=== PATIENT | male | born 1970 | race Caucasian/White ===

== ENCOUNTER 2019-05-05 18:07 | Inpatient (IN) ==
--- NOTE | 2019-05-05 19:53 | RAD ---
HISTORYUMBILICAL ABD PAIN ABDOMEN PAIN, FAMILY STATES "PT HAD HERNIA RUPTURE A WHILE BACK."PAIN ALL DAY LONG, BURNING IN ABDOMEN. 01/23STUDYKUBCOMPARISONNoneFINDINGSEvaluation of the abdomen demonstrates a normal bowel gas pattern. No pathological soft tissue mass or calcification can be observed. The bony structures are grossly intact. Cholecystectomy clips.IMPRESSIONNo evidence for acute abdominal pathology identified.Electro nically signed by: ALEKSEY HOOKER (May 05, 2019 19:51:30)
[2019-05-05 19:54] LABS: BASOPHILS # (AUTO) 0.1 X10^3/uL (0.0-0.1); EOSINOPHILS # (AUTO) 0.1 x10^3/uL (0.0-0.2); EOSINOPHILS % (AUTO) 1.6 % (0.9-2.9); HEMATOCRIT 54.1 % (42.0-54.0); HEMOGLOBIN 18.6 g/dL (13.5-18.0); LYMPHOCYTES # (AUTO) 1.1 X10^3/uL (1.3-2.9); LYMPHOCYTES % (AUTO) 17.6 % (21.0-51.0); MEAN CORPUSCULAR HEMOGLOBIN 32.1 pg (27.0-34.0); MEAN CORPUSCULAR HGB CONC 34.4 g/dL (33.0-35.0); MEAN CORPUSCULAR VOLUME 93.3 fL (80.0-100.0); MEAN PLATELET VOLUME 8.1 fL (7.4-11.0); MONOCYTES # (AUTO) 0.4 x10^3/uL (0.3-0.8); MONOCYTES % (AUTO) 6.2 % (0.0-13.0); NEUTROPHILS # (AUTO) 4.5 x10^3/uL (2.2-4.8); NEUTROPHILS % (AUTO) 73.6 % (42.0-75.0); PLATELET COUNT 198 X10^3/uL (150.0-450.0); RED BLOOD COUNT 5.79 X10^6/uL (4.7-6.0); RED CELL DISTRIBUTION WIDTH 15.2 % (11.6-16.5); WHITE BLOOD COUNT 6.1 X10^3/uL (3.6-10.0)
[2019-05-05 20:02] LABS: ALANINE AMINOTRANSFERASE 25 Units/L (12-78); ALBUMIN 3.7 g/dL (3.4-5.0); ALKALINE PHOSPHATASE 160 Units/L (46-116); ASPARTATE AMINO TRANSFERASE 20 Units/L (15-37); BLOOD UREA NITROGEN 8 mg/dL (7-18); CALCIUM 8.6 mg/dL (8.5-10.1); CARBON DIOXIDE 29.3 mmol/L (21-32); CHLORIDE 101 mmol/L (98-107); CREATININE 0.92 mg/dL (0.70-1.30); SODIUM 140 mmol/L (136-145); TOTAL PROTEIN 7.2 g/dL (6.4-8.2); eGFR NON BLACK RACES > 60 (>60)
[2019-05-05] MEDS ORDERED: PEPCID 20 MG IV PREMIX* 20 MG/50 ML BAG IV ONE ×2 (20:44→21:03)
--- NOTE | 2019-05-05 20:45 | DR.ABDMALE ---
HPI Time seen Time Seen by Provider: 05/05/19 20:42 PCP Primary Care Physician: MARK Complaint Chief Complaint:: ABDOMEN PAIN, FAMILY STATES "PT HAD HERNIA RUPTURE A WHILE BACK."PAIN ALL DAY LONG, BURNING IN ABDOMEN. 01/23 Self Treatment fo Chief Complaint: PT STATES," I BEEN HURTING FOR YEARS." Mode of arrival Mode of Arrival: Wheelchair Timing Onset of Chief Complaint: 05/05/19 PMH PMH Past Medical History: Yes Past Medical History Comment: BACK PROBLEMS Past Surgical History: Yes Surgical History: Other Past Surgical History Comment: HERNIA REPAIR Family History History of Family Medical Conditions: Yes Family Medical History: Cancer Social History Type of Tobacco Use: Cigarettes Does any household member use tobacco: No Alcohol Use: DAILY Do you use any recreational Drugs:: No Lives With: Alone Lives Where: Home infectious screening In the last 2 months have you had wt loss of >10#?: NO Have you had fever, night sweats or hemotysis?: No Have you traveled outside the country in the last 6 months?: No Isolation: Standard PE Vital Signs Vital Signs: Temp Pulse Pulse Resp BP BP Pulse Ox 05/06/19 01:12 72 20 120/77 96 05/05/19 21:11 18 05/05/19 18:13 97.2 F L 98 H 20 139/86 96 ROR Labs Reviewed Result Diagrams: 05/05/19 19:40 05/05/19 19:40 Laboratory: WBC 6.1 X10^3/uL (3.6-10.0) 05/05/19 19:40 RBC 5.79 X10^6/uL (4.7-6.0) 05/05/19 19:40 Hgb 18.6 g/dL (13.5-18.0) H 05/05/19 19:40 Hct 54.1 % (42.0-54.0) H 05/05/19 19:40 MCV 93.3 fL (80.0-100.0) 05/05/19 19:40 MCH 32.1 pg (27.0-34.0) 05/05/19 19:40 MCHC 34.4 g/dL (33.0-35.0) 05/05/19 19:40 RDW 15.2 % (11.6-16.5) 05/05/19 19:40 Plt Count 198 X10^3/uL (150.0-450.0) 05/05/19 19:40 MPV 8.1 fL (7.4-11.0) 05/05/19 19:40 Neut % (Auto) 73.6 % (42.0-75.0) 05/05/19 19:40 Lymph % (Auto) 17.6 % (21.0-51.0) L 05/05/19 19:40 Logan % (Auto) 6.2 % (0.0-13.0) 05/05/19 19:40 Eos % (Auto) 1.6 % (0.9-2.9) 05/05/19 19:40 Baso % (Auto) 1.0 % (0.2-1.0) 05/05/19 19:40 Neut # (Auto) 4.5 x10^3/uL (2.2-4.8) 05/05/19 19:40 Lymph # (Auto) 1.1 X10^3/uL (1.3-2.9) L 05/05/19 19:40 Logan # (Auto) 0.4 x10^3/uL (0.3-0.8) 05/05/19 19:40 Eos # (Auto) 0.1 x10^3/uL (0.0-0.2) 05/05/19 19:40 Baso # (Auto) 0.1 X10^3/uL (0.0-0.1) 05/05/19 19:40 Absolute Nucleated RBC 0.4 /100WBC 05/05/19 19:40 Sodium 140 mmol/L (136-145) 05/05/19 19:40 Corrected Sodium TNP 05/05/19 19:40 Potassium 3.8 mmol/L (3.5-5.1) 05/05/19 19:40 Chloride 101 mmol/L (98-107) 05/05/19 19:40 Carbon Dioxide 29.3 mmol/L (21-32) 05/05/19 19:40 BUN 8 mg/dL (7-18) 05/05/19 19:40 Creatinine 0.92 mg/dL (0.70-1.30) 05/05/19 19:40 Est GFR (MDRD) Af Amer > 60 (>60) 05/05/19 19:40 Est GFR (MDRD) Non-Af > 60 (>60) 05/05/19 19:40 Glucose 100 mg/dL (65-99) H 05/05/19 19:40 Calcium 8.6 mg/dL (8.5-10.1) 05/05/19 19:40 Corrected Calcium TNP 05/05/19 19:40 Total Bilirubin 0.70 mg/dL (0.2-1.0) 05/05/19 19:40 AST 20 Units/L (15-37) 05/05/19 19:40 ALT 25 Units/L (12-78) 05/05/19 19:40 Alkaline Phosphatase 160 Units/L (46-116) H 05/05/19 19:40 Total Protein 7.2 g/dL (6.4-8.2) 05/05/19 19:40 Albumin 3.7 g/dL (3.4-5.0) 05/05/19 19:40 Globulin 3.5 g/dL (2.5-4.5) 05/05/19 19:40 Albumin/Globulin Ratio 1.1 Ratio (1.1-2.1) 05/05/19 19:40 Total PSA 1.61 ng/mL (0.13-4.0) 05/05/19 19:40 Specimen Type Clean catch urine 05/05/19 20:36 Urine Color Yellow (YELLOW) 05/05/19:36 Urine Appearance Clear (CLEAR) 05/05/19:36 Urine pH 8.0 (5.0 - 8.0) 05/05/19:36 Ur Specific [place] 1.015 (1.000-1.030) 05/05/19 20:36 Urine Protein Negative (NEGATIVE) 05/05/19 20:36 Urine Glucose (UA) Negative (NEGATIVE) 05/05/19: Urine Ketones Negative (NEGATIVE) 05/05/19: Urine Occult Blood Negative (NEGATIVE) 05/05/19: Urine Nitrite Negative (NEGATIVE) 05/05/19:36 Urine Bilirubin Negative (NEGATIVE) 05/05/19: Urine Urobilinogen Normal (NORMAL) 05/05/19: Ur Leukocyte Esterase Negative (NEGATIVE) 05/05/19 20:36 Opioid Opioid Risk Tool Age (Marc box if 16-45): No History of Preadolescent Sexual Abuse: No Total: 0 Total Score Risk Category: Low Risk Copyright: John INIGUEZ predicting aberrant behaviors Diagnosis Discharge Problem: Abdominal pain, Ventral hernia Instructions Forms: Patient Portal Excuse From Work
[2019-05-05 20:46] LABS: BILIRUBIN,URINE NEGATIVE (NEGATIVE); BLOOD/HEMOGLOBIN,URINE NEGATIVE (NEGATIVE); GLUCOSE, URINE NEGATIVE (NEGATIVE); KETONES,URINE NEGATIVE (NEGATIVE); LEUKOCYTE ESTERASE ,URINE NEGATIVE (NEGATIVE); NITRITES,URINE NEGATIVE (NEGATIVE); PROTEIN,URINE NEGATIVE (NEGATIVE); UROBILINOGEN,URINE NORMAL (NORMAL)
[2019-05-05 20:51] LABS: APPEARANCE,URINE CLEAR (CLEAR); COLOR,URINE YELLOW (YELLOW)
[2019-05-05] MEDS ORDERED: TORADOL 30 MG VIAL IVP ONE (21:01)
[2019-05-05] MEDS ORDERED: TORADOL 30 MG VIAL ONE (21:03)
[2019-05-05] MEDS ORDERED: NS 250 ML IV 250 ML IV ONE (21:03)
--- NOTE | 2019-05-06 00:28 | CT ---
CT abdomen and pelvis with contrastIndication: Abdominal pain. History of herniaCOMPARISONNo recent similar CTTECHNIQUEHelical images through the abdomen and pelvis after IV and oral contrast. Coronal and sagittal reformats providedFINDINGSLimited images through the lower chest demonstrates calcified left lower lung granuloma. Review of bone windows shows hemangioma at T10, without other acute osseous abnormality. L3 hemangioma also noted. Mild SI joint DJD notedAbdomen: The gallbladder is absent. The liver, spleen and adrenal glands are normal.. Hyperenhancing area near the tail of the pancreas is possibly a splenule on axial image 23, but pancreas tail lesion is not entirely excluded. The kidneys are normal. Few aortic vascular calcifications and iliac vascular calcifications are noted. Few noninflamed colonic diverticular noted. There is no acute colonic abnormality. The appendix is not convincingly demonstrated without pericecal inflammation. There is large ventral hernia, containing loops of mid abdominal small bowel. The bowel enters the left aspect of the hernia on axial image 51, and exits the hernia sac on axial image 48. The hernia sac is multi septate, with other loops of bowel entering into the right hernia sac, with more acute angulation on axial image 63. The loops within the hernia sac are minimally dilated, with mild adjacent mesenteric stranding. No high-grade obstruction seen.Pelvis: Urinary bladder and rectum are normal. Prostate gland is normal to slightly enlarged in sizeIMPRESSION1. Large ventral hernia, with multi septate hernia sac, with small-bowel entering and exiting at multiple levels, with mild stranding in the mesentery. While there is no high-grade obstruction, the bowel within the hernia sac is mildly dilated, and given the stranding, incarceration or strangulation may be developing. Surgical evaluation is recommended.2. Prominent prostate gland. Correlate with PSA3. No other acute abnormality to explain the patient's pain.Electronically signed by: HADLEY SALAZAR (May 06, 2019 00:27:26)
[2019-05-06] MEDS ORDERED: LEVAQUIN PREMIX IV 500 MG 500 MG/100 ML BAG IV ONE ×2 (01:16→01:31)
[2019-05-06] MEDS ORDERED: NS 1000 ML 1,000 ML ONE (01:16)
[2019-05-06] MEDS: NS 1000 ML 1,000 ML IV SCH ×2 (01:31→09:11)
[2019-05-06] MEDS ORDERED: MORPHINE SULFATE INJ 2 MG INJ IVP PRN (03:01)
[2019-05-06] MEDS ORDERED: ZOFRAN INJ 4 MG VIAL IVP PRN (03:01)
[2019-05-06 03:28] VITALS: BMI 29.1
[2019-05-06 06:32] LABS: BASOPHILS # (AUTO) 0.1 X10^3/uL (0.0-0.1); BASOPHILS % (AUTO) 1.2 % (0.2-1.0); EOSINOPHILS # (AUTO) 0.2 x10^3/uL (0.0-0.2); EOSINOPHILS % (AUTO) 4.6 % (0.9-2.9); HEMATOCRIT 50.6 % (42.0-54.0); HEMOGLOBIN 17.5 g/dL (13.5-18.0); LYMPHOCYTES # (AUTO) 1.3 X10^3/uL (1.3-2.9); LYMPHOCYTES % (AUTO) 28.6 % (21.0-51.0); MEAN CORPUSCULAR HGB CONC 34.5 g/dL (33.0-35.0); MEAN CORPUSCULAR VOLUME 92.8 fL (80.0-100.0); MEAN PLATELET VOLUME 8.1 fL (7.4-11.0); MONOCYTES # (AUTO) 0.5 x10^3/uL (0.3-0.8); MONOCYTES % (AUTO) 10.9 % (0.0-13.0); NEUTROPHILS # (AUTO) 2.6 x10^3/uL (2.2-4.8); NEUTROPHILS % (AUTO) 54.7 % (42.0-75.0); PLATELET COUNT 196 X10^3/uL (150.0-450.0); RED BLOOD COUNT 5.45 X10^6/uL (4.7-6.0); RED CELL DISTRIBUTION WIDTH 15.6 % (11.6-16.5); WHITE BLOOD COUNT 4.7 X10^3/uL (3.6-10.0)
[2019-05-06 06:44] LABS: ALANINE AMINOTRANSFERASE 23 Units/L (12-78); ALBUMIN 3.2 g/dL (3.4-5.0); ALKALINE PHOSPHATASE 146 Units/L (46-116); AMYLASE 25 Units/L (25-115); ASPARTATE AMINO TRANSFERASE 24 Units/L (15-37); BLOOD UREA NITROGEN 9 mg/dL (7-18); CALCIUM 8.1 mg/dL (8.5-10.1); CARBON DIOXIDE 31.4 mmol/L (21-32); CHLORIDE 102 mmol/L (98-107); COR CA(FOR HYPOALB) 8.7 mg/dL (8.5-10.1); CREATININE 0.93 mg/dL (0.70-1.30); SODIUM 139 mmol/L (136-145); TOTAL PROTEIN 6.4 g/dL (6.4-8.2); eGFR NON BLACK RACES > 60 (>60)
[2019-05-06] MEDS ORDERED: PEPCID 20 MG IV PREMIX* 20 MG/50 ML BAG IV SCH (09:00)
[2019-05-06 12:11] VITALS: BP 118/80
[2019-05-06] MEDS ORDERED: LEVAQUIN PREMIX IV 500 MG 500 MG/100 ML BAG IV SCH (21:00)
== END 2019-05-06 15:10 | disposition home or self-care (01) | DRG 395 ==
LOC: ER 18:12 → MED/SURG 05-06 02:17
PROVIDERS: ADMIT Internal Medicine; ATTEND Internal Medicine
DX: M51.36 Other intervertebral disc degeneration, lumbar region; R10.9 Unspecified abdominal pain; N40.0 Benign prostatic hyperplasia without lower urinary tract symptoms; K43.2 Incisional hernia without obstruction or gangrene
CPT/HCPCS: 36415; 74000; 74018; 74177; 80053; 81003; 82150; 83735; 84153; 85025; 96367; 96374; 96375; 99283; S0028; A4222; J1885; J1956; J2270; J7030; J7050